=== PATIENT | male | born 1950 ===

== ENCOUNTER 2018-09-14 07:37 | Emergency (ER) | payer MEDICARE, MEDICAID ==
--- NOTE | 2018-09-14 08:19 | C.PDOC ---
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 Patient has been given Tylenol at the retirement with no relief of symptoms. Patient denies any recent falls or trauma to the head; patient does take aspirin daily. Patient otherwise denies any vision changes, dizziness, facial droop, slurred speech or changes in sensation. He also denies any chest pain, shortness of breath or palpitations. No additional complaints. PMD: Dr. Leon Quintero Time Seen by Provider: 09/14/18 07:38 Chief Complaint (Nursing): Headache History Per: Patient History/Exam Limitations: no limitations Onset/Duration Of Symptoms: Days Current Symptoms Are (Timing): Still Present Quality: "Pain" Preceeding Symptoms: denies: Visual Disturbances, Known Migraine Symptoms Associated Symptoms: denies: Photophobia, Blurred Vision, Nausea, Vomiting, Extremity Weakness Additional History Per: Patient Past Medical History Reviewed: Historical Data, Nursing Documentation, Vital Signs Vital Signs: Last Vital Signs Temp Pulse Resp BP 168/72 H 09/14/18 07:41 Pulse Ox - Medical History PMH: Benign Prostatic Hyperplasia, HTN, Seizures Surgical History: CABG Family History: States: Other Other Family History: father with brain cancer - Social History Hx Tobacco Use: No Hx Alcohol Use: No Hx Substance Use: No Review Of Systems Constitutional: Negative for: Fever, Chills Eyes: Negative for: Vision Change Cardiovascular: Negative for: Chest Pain, Palpitations Respiratory: Negative for: Shortness of Breath Gastrointestinal: Negative for: Vomiting Neurological: Positive for: Headache. Negative for: Weakness, Numbness, Seizures, Dizziness Physical Exam - Physical Exam Appears: Non-toxic, In Acute Distress (mild-moderate pain) Skin: Normal Color, Dry Head: Atraumatic, Normacephalic, No Tenderness Eye(s): bilateral: PERRL (pupils 2-3mm ), EOMI Nose: Normal Oral Mucosa: Moist Neck: Normal ROM, Supple Chest: Symmetrical, Other (midline sternotomy scar) Cardiovascular: Rhythm Regular, No Murmur Respiratory: Normal Breath Sounds, No Wheezing Gastrointestinal/Abdominal: Normal Exam, Soft, No Tenderness Back: Normal Inspection Extremity: No Deformity, Other (left upper extremity is contracted; 4/5 motor strength left upper and lower extremities.) Neurological/Psych: Oriented x3, Normal Speech, Normal Cognition, Normal Cranial Nerves, Normal Motor, Normal Sensation Other Neurological Findings: No Facial Palsy ED Course And Treatment - Laboratory Results Result Diagrams: 09/14/18 08:17 09/14/18 08:53 Pulse Ox Interpretation: Normal - CT Scan/US CT Head Other Rad Studies (CT/US): Read By Radiologist, Radiology Report Reviewed CT/US Interpretation: FINDINGS: HEMORRHAGE: No intracranial hemorrhage. BRAIN: No mass effect or edema. Extensive right occipito temporoparietal encephalomalacia common nonspecific. No evidence of prior surgery. Possible old infarct versus posttraumatic. No evidence of acute infarct. There is linear high attenuation along the tract of what was likely a prior left frontal ventriculostomy catheter. The catheter is no longer present. There is a small defect in the left frontal calvarium for this ventriculostomy catheter, sub sequently removed. The high attenuation likely represents calcification along the tract. VENTRICLES: Infarct dilatation of the right lateral ventricle involving the atrium and occipital and temporal horn secondary to surrounding parenchymal volume loss. No midline shift. No generalized ventriculomegaly. CALVARIUM: Unremarkable. PARANASAL SINUSES: Unremarkable as visualized. No significant inflammatory changes. MASTOID AIR CELLS: Unremarkable as visualized. No inflammatory changes. OTHER FINDINGS: None. IMPRESSION: Extensive nonspecific encephalomalacia in the right temporal, occipital and parietal lobes. Possible old infarct or posttraumatic. No evidence of prior surgery. No evidence of acute infarct. Linear calcification along old left frontal ventriculostomy catheter tract. Otherwise unremarkable. Progress Note: Patient with atraumatic headache x [address] head w/o contrast ordered. Basic bloodwork ordered. Patient given IV Benadryl, Reglan and fluids given. Disposition Counseled Patient/Family Regarding: Studies Performed, Diagnosis, Need For Followup, Rx Given - Disposition Referrals: Leon Quintero MD [Staff Provider] - Disposition: TRANSF TO SNF Disposition Time: 10:55 Condition: STABLE Prescriptions: Acetaminophen/Butalbital/Caf [Fioricet] 1 tab PO TID PRN #20 tab PRN Reason: Headache Instructions: Headache, Adult (DC) Forms: [employer] (Maori) Print Language: MALAY - Clinical Impression Clinical Impression: Headache - Scribe Statement The provider has reviewed the documentation as recorded by the Kennedy Bowles Provider Attestation: All medical record entries made by the Kennedy were at my direction and personally dictated by me. I have reviewed the chart and agree that the record accurately reflects my personal performance of the history, physical exam, medical decision making, and the department course for this patient. I have also personally directed, reviewed, and agree with the discharge instructions and disposition.
[2018-09-14] MEDS ORDERED: DiphenhydrAMINE 50 mg/ml Inj ONE (08:23)
[2018-09-14 08:24] LABS: BASO # 0.1 K/uL (0.0-0.2); BASO % 0.8 % (0.0-2.0); EOS # 0.1 K/uL (0.0-0.7); EOS % 1.2 % (0.0-4.0); HEMOGLOBIN 15.1 g/dL (12.0-18.0); LYMPH # 1.5 K/uL (1.0-4.3); LYMPH % 18.4 % (20.0-40.0); MEAN CELL VOLUME 85.7 fL (80.0-94.0); MEAN CORPUSCULAR HEMOGLOBIN 29.5 pg (27.0-31.0); MEAN CORPUSCULAR HGB CONC 34.4 g/dL (33.0-37.0); MEAN PLATELET VOLUME 9.9 fL (7.2-11.7); MONO # 0.5 K/uL (0.0-0.8); MONO % 5.7 % (0.0-10.0); NEUT # 6.1 K/uL (1.8-7.0); NEUT % 73.9 % (50.0-75.0); NRBC % 0.1 % (0.0-2.0); RBC 5.11 Mil/uL (4.40-5.90); RED CELL DISTRIBUTION WIDTH 14.1 % (11.5-14.5); WHITE BLOOD COUNT 8.3 K/uL (4.8-10.8)
[2018-09-14] MEDS ORDERED: Sodium Chloride 0.9% 1,000 ML ONE (08:24)
[2018-09-14] MEDS: DiphenhydrAMINE 50 mg/ml Inj IVP STA (08:25)
[2018-09-14] MEDS: Sodium Chloride 0.9% 1,000 ML IV ONE (08:25)
[2018-09-14 09:14] LABS: ALB/GLOB RATIO 1.4 (1.0-2.1); ALBUMIN 4.5 g/dL (3.5-5.0); BLOOD UREA NITROGEN 15 mg/dL (9-20); CALCIUM 9.3 mg/dl (8.6-10.4); GFR NON-AFRICAN AMERICAN > 60
[2018-09-14 09:16] LABS: ALT/SGPT 13 U/L (21-72); AST/SGOT 27 U/L (17-59)
--- NOTE | 2018-09-14 09:33 | CT ---
Date of service: 09/14/2018 PROCEDURE: CT HEAD WITHOUT CONTRAST. HISTORY: sevre frontal headache COMPARISON: None available. TECHNIQUE: Axial computed tomography images were obtained through the head/brain without intravenous contrast. Radiation dose: Total exam DLP = 1218.46 mGy-cm. This CT exam was performed using one or more of the following dose reduction techniques: Automated exposure control, adjustment of the mA and/or kV according to patient size, and/or use of iterative reconstruction technique. FINDINGS: HEMORRHAGE: No intracranial hemorrhage. BRAIN: No mass effect or edema. Extensive right occipito temporoparietal encephalomalacia common nonspecific. No evidence of prior surgery. Possible old infarct versus posttraumatic. No evidence of acute infarct. There is linear high attenuation along the tract of what was likely a prior left frontal ventriculostomy catheter. The catheter is no longer present. There is a small defect in the left frontal calvarium for this ventriculostomy catheter, subsequently removed. The high attenuation likely represents calcification along the tract. VENTRICLES: Infarct dilatation of the right lateral ventricle involving the atrium and occipital and temporal horn secondary to surrounding parenchymal volume loss. No midline shift. No generalized ventriculomegaly. CALVARIUM: Unremarkable. PARANASAL SINUSES: Unremarkable as visualized. No significant inflammatory changes. MASTOID AIR CELLS: Unremarkable as visualized. No inflammatory changes. OTHER FINDINGS: None. IMPRESSION: Extensive nonspecific encephalomalacia in the right temporal, occipital and parietal lobes. Possible old infarct or posttraumatic. No evidence of prior surgery. No evidence of acute infarct. Linear calcification along old left frontal ventriculostomy catheter tract. Otherwise unremarkable.
[2018-09-14 12:50] VITALS: BP 145/85; PULSE 90; RESP 20; TEMP 98.6; O2SAT 98
== END 2018-09-14 12:50 ==
LOC: C.ER 07:37
DX: R51 Headache (principal)
CPT/HCPCS: 70450; 80053; 82948; 85025; 96361; 96374; 96375; 99285; J1200; J1885; J2765; J7030